=== PATIENT | male | born 1995 | race Caucasian/White ===

== ENCOUNTER 2016-05-22 03:56 | Emergency (ER) | payer BC ==
[~2016-05-22] VITALS: Ht 190.5 cm; Wt 81.8 kg
[2016-05-22 04:00] VITALS: TEMP 98.8
[2016-05-22] MEDS ORDERED: SUDAFED30 MG PO (04:03)
[2016-05-22 04:57] VITALS: BP 112/84; PULSE 101
== END 2016-05-22 05:08 | disposition home or self-care (01) ==
LOC: COL.ER 03:56
DX: J06.9 Acute upper respiratory infection, unspecified (principal)